=== PATIENT | female | born 1940 | race Caucasian/White ===

== ENCOUNTER 2024-03-29 05:08 | Inpatient (IN) ==
--- NOTE | 2024-02-21 10:46 | PAT Medication Instructions ---
Medication Instructions Date of Service February 21, 2024 Home Medications Vitamin D3 1 dose PO QAM calcium and magnesium carbonates oral suspension 10 ml PO QAM coenzyme Q10 100 mg capsule (CoQ-10) 100 mg PO QAM cyanocobalamin (vitamin B-12) 1,000 mcg tablet (Vitamin B-12) 1,000 mcg PO DAILY magnesium citrate 100 mg tablet 100 mg PO QAM niacin 400 mg (inositol niacinate 500 mg) capsule (Niacin Flush Free) 1 cap PO QAM resveratrol 100 mg capsule 100 mg PO QAM STOP taking 2 weeks before surgery (or as soon as possible if surgery is within 2 weeks) coenzyme Q10 100 mg capsule (CoQ-10) 100 mg PO QAM resveratrol 100 mg capsule 100 mg PO QAM STOP taking 48 hours before surgery niacin 400 mg (inositol niacinate 500 mg) capsule (Niacin Flush Free) 1 cap PO QAM DO NOT take the morning of surgery Vitamin D3 1 dose PO QAM calcium and magnesium carbonates oral suspension 10 ml PO QAM cyanocobalamin (vitamin B-12) 1,000 mcg tablet (Vitamin B-12) 1,000 mcg PO DAILY magnesium citrate 100 mg tablet 100 mg PO QAM MORNING OF SURGERY: NOTHING TO EAT OR DRINK AFTER MIDNIGHT Other Notes If you have any questions please call us at [phone] or [phone] or [phone] or [phone]
--- NOTE | 2024-02-28 13:06 | Anesthesiology Consultation ---
Date of Service February 28, 2024 Assessment & Plan (1) Encounter for pre-operative examination: awaiting: - surgeon ordered medical clearance. - cardiology clearance. Optimization form to be faxed to cardiology office. Patient and daughter made aware at PAT visit. Surgeon's office made aware. - copy of 2020 cardiac catheterization from [facility]. - copy of last AAA imaging from PCP, Dr. Noe Morales. - [employer] pacemaker. patient does not want any IV in either hand This is already marked on OR sheet. - cardiology office visit 11/22/23: "...repeat BP 132/62 (initial 200/110)...OSMAN with no limitation...dyspnea-exertional, non limiting...LV outflow tract obstruction-with borderline LVH, with OSMAN, declining BB. CAD-moderate CAD continue aspirin. AAA-monitored by PCP. Return in about 1 year..." Case discussed in detail with Dr. Nath who advised patient will need cardiology clearance prior to surgery. Total time in direct patient care 40 minutes, patient and daughter indicated all questions and concerns were addressed satisfactorily and they denied additional questions or concerns. Chart Review Chart Review: Pending: Refer to Additional Notes / Consult section and Patient seen in Pre Admission Testing Teaching & Discussion Pre-Anesthesia Teaching/Discussion Notes: Instructed NPO after midnight before surgery, except medications with 15 cc of water. Medication instructions provided according to the PAT guidelines. History Surgery Operation Date: 03/29/24 07:00 Proposed Procedures p Right Total Hip Arthroplasty with Dual Mobility Implant - Tru Beck MD Height/Weight Height: 5 ft 3 in Weight: 65.9 kg Allergies Allergy/AdvReac Type Severity Reaction Status Date / Time No Known Allergies Allergy Verified 02/14/24 14:05 Medications Home Medications Medication Instructions Recorded Confirmed Last Taken Vitamin D3 1 dose PO QAM 02/14/24 02/14/24 Unknown calcium and magnesium carbonates 10 ml PO QAM 02/14/24 02/14/24 Unknown oral suspension coenzyme Q10 100 mg capsule 100 mg PO QAM 02/14/24 02/14/24 Unknown (CoQ-10) magnesium citrate 100 mg tablet 100 mg PO QAM 02/14/24 02/14/24 Unknown niacin 400 mg (inositol niacinate 1 cap PO QAM 02/14/24 02/14/24 Unknown 500 mg) capsule (Niacin Flush Free) resveratrol 100 mg capsule 100 mg PO QAM 02/14/24 02/14/24 Unknown mecobalamin (vitamin B12) 1,000 1,000 mcg sublingual QAM 02/28/24 02/28/24 Unknown mcg disintegrating tablet,sublingual vitamin K2 45 mcg capsule 45 mcg PO DAILY 02/28/24 02/28/24 Unknown Past Medical History Medical History History of blood transfusion AAA (abdominal aortic aneurysm) Left ventricular outflow tract obstruction Hearing deficit hearing aids bilateral Borderline hypertension no medications - monitors at home routinely Hyperlipidemia Hx pulmonary embolism (12/1976) s/p delivery, treated with anticoagulants (coumadin) - no problems since. Pacemaker (08/2022) [employer] device. placed at [facility], follows with Dr Bowman. 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 last checked within the last 6 months. Patient denies h/o stroke, seizures, heart attack, heart failure, DM, or blood transfusions. Exercise / Class Metabolic Activity III < 4 Walking/Shop/Light housework (denies chest discomfort or shortness of breath with usual activities) Past Family History Family History Other No family history of adverse response to anesthesia Past Surgical History Surgical History (Updated 02/28/24 @ 15:46 by Tamara Morales PA-C) History of surgery patient states ovaries may have been surgically removed-unsure History of cataract surgery History of hernia repair History of esophagogastroduodenoscopy (EGD) History of colonoscopy History of laparoscopy remote history History of evacuation of hematoma (12/1976) from episotomy S/P cardiac pacemaker procedure 08/2022 at [facility] - [employer] device Past Anesthesia History No Hx of Anesthesia Complications and No Family Hx of Anesthesia Complications History of PONV No Hx of PONV and Hx of Motion Sickness Social History Smoking Status: Never smoker Do You Dip or Chew Tobacco: No Hx Alcohol Use: Yes alcohol intake frequency: holidays/special occasions only Hx Substance Use: No substance use type: does not use Review of Systems Patient denies chest pain, shortness of breath, dyspnea on exertion, snoring, witnessed apneas, reflux, fever, chills, cough, wheezing, or palpitations. Physical Exam Vital Signs Vitals BP 168/86 left arm manual P 75 TEMP 97.9 SP02 96% on RA RESP 19 Physical Patient resting comfortably in chair in no acute distress, alert and oriented, responding appropriately throughout visit Full cervical extension range of motion without pain TMD 3.5 finger breadths Mallampati Score 2 Dentition: intact, denies chipped or loose teeth, caps/crowns, implants or bridges Lungs: normal respiratory effort. Good air movement, clear throughout to auscultation, no adventitious breath sounds Cardiac: regular rate and rhythm, no murmurs noted Carotid arteries: negative bruit bilat Lab Results Anesthesia Preop Results Results Anesthesia Widget: WBC 6.11 K/ul (4.8-10.8) 02/28/24 Hgb 13.8 g/dl (12.0-16.0) 02/28/24 Hct 41.8 % (37.0-47.0) 02/28/24 Plt 227 K/uL (130-400) 02/28/24 Na 140 mmol/L (136-145) 02/28/24 K 4.0 mmol/L (3.5-5.1) 02/28/24 Cl 104 mmol/L (98-107) 02/28/24 CO2 29 mmol/L (21-32) 02/28/24 BUN 12 mg/dl (6-23) 02/28/24 Creat 0.86 mg/dl (0.6-1.2) 02/28/24 Glucose Level 106 mg/dl (70-99(Fasting)) H 02/28/24 PT 10.7 Seconds (9.0-12.0) 02/28/24 PTT 29 Seconds (21-31) 02/28/24 INR 1.0 (0.9-1.1) 02/28/24 Urine Color Yellow 02/28/24 Urine Appearance Clear (Clear) 02/28/24 Urine pH 5.5 (4.5-7.5) 02/28/24 Urine Specific [place] 1.015 (1.000-1.030) 02/28/24 Urine Protein Negative (Negative) 02/28/24 Urine Glucose (UA) Negative (Negative) 02/28/24 Urine Ketones Negative (Negative) 02/28/24 Urine Blood Negative (Negative) 02/28/24 Urine Nitrite Negative (Negative) 02/28/24 Urine Bilirubin Negative (Negative) 02/28/24 Urine Urobilinogen Negative (Negative) 02/28/24 Urine Leukocyte Esterase 2+ (Negative) H 02/28/24 Urine WBC (Auto) 21-50 /hpf (0-5) H 02/28/24 Urine RBC (Auto) 0-2 /hpf (0-2) 02/28/24 Urine Hyaline Casts (Auto) 0-2 /lpf (0-2) 02/28/24 Urine Epithelial Cells (Auto) 0-2 /hpf (0-2) 02/28/24 Urine Bacteria (Auto) 4+ (None Seen) H 02/28/24 Blood Type A Positive 02/28/24 Antibody Screen NEGATIVE 02/28/24 Testing Laboratory Results Surgeon's office made aware of abnormal UA. Electrocardiogram Date: 02/28/24 Atrial sensed ventricular paced rhythm, rate 72 bpm Chest X-Ray Date: 02/28/24 No acute cardiopulmonary findings. Echocardiogram Date: 11/22/23 EF 55-60% Moderate to severe mitral regurgitation Mild tricuspid regurgitation Peak LVOT velocity is 2.6 m/sec, gradient is 27 mmHg. During Valsalva, velocity was 2.8 m/sec with peak gradient of 31 mmHg PASP 28 mmHg Stress Test Date: 12/16/21 MPHR 75% Low risk study, no significant ischemia or infarction LVEF 70% Other Testing Pacemaker report 12/01/23 [employer] 4% paced atrial 96% paced ventricular Mode DDDR Carotid doppler 06/05/22 < 50% stenosis ICAs bilat
--- NOTE | 2024-03-29 05:27 | History & Physical Bridge Note ---
Date of Service March 29, 2024 History & Physical Bridge Note I have examined the patient, reviewed the History & Physical and in the interval since the performance of the History & Physical I have noted the following changes of clinical significance: consent and site verified.no changes noted
--- OUTSIDE RECORDS SUMMARY | 2024-03-29 05:29 | External Medical Summary | Continuity of Care Document ---
Author Name Unknown Organization [facility] [address] [id number] Address [address] [place] [address] [id number] Encounter [facility] [id number] Date(s): 03/02/24 - 03/02/24 [facility] [address] [facility] [address] [address] Encounter Diagnosis Osteoarthritis of right hip(Discharge Diagnosis) - 03/02/24 UTI (urinary tract infection), bacterial(Discharge Diagnosis) - 03/02/24 Discharge Disposition: Home or Self Care Attending Physician: MD Ebony, Tru Elliott Allergies, Adverse Reactions, Alerts No Known Allergies Medications Bactrim DS 800 mg-160 mg oral tablet Start: 03/01/24 5:37:00 PM EST, trimethoprim 1 tab, PO, bid, Disp# 10 tab, Stop: 03/06/24 6:00:00 PM EST, Pharmacy: [id number] Start Date: 03/01/24 Stop Date: 03/06/24 Status: Ordered Mental Status 03/02/24 Barriers to Learning one year Hearing de ficit Mandatory Health Literacy Documentation Yes Health Literacy Communication Barriers N ever Primary Language Nepali Problem List Condition Confirmation Course Effective Dates Status Health St atus Informant Bilateral hip pain Confirmed Active Diagnosis Diagnosis Type Effective Dates Health Status Clinical Service Informant UTI (urinary tract infection), bacterial Discharge Diagnosis 03/02/24 Non-Specified Osteoarthritis of right hip Discharge Diagnosis 03/02/24 Non-Specified Vital Signs Most recent to oldest [Reference Range]: 1 Height 158.5 cm (03/02/24 4:03 PM) Patient Weight 68.0 kg (03/02/24 4:03 PM) Body Mass Index 27.07 kg/m2 (03/02/24 4:03 PM) Temperature [36.5-37.9 DegC] 36.5 DegC (03/02/24 4:03 PM) Respiratory Rate 20 br/min (03/02/24 4:03 PM) Blood Pressure 110/70mmHg (03/02/24 4:03 PM) Social History Social History Type Response Smoking Status Never smoked cigaret yasmeen Sex Sex Representation Female (finding)
[2024-03-29] MEDS: LR 60ML/HR IV SCH (05:51)
[2024-03-29] MEDS: LR 500ML BOLUS, THEN 15ML/HR IV SCH (05:51)
[2024-03-29] MEDS ORDERED: BUPIVACAINE 0.5 % 5 MG/1 ML PF 10ML VIAL ONE (06:25)
[2024-03-29] MEDS: TRANEXAMIC ACID 1,000 MG **IV Pre-op IV SCH (06:43)
[2024-03-29] MEDS ORDERED: fentaNYL citrate PF 100 MCG/2 ML VIAL ONE (06:44)
[2024-03-29] MEDS: ceFAZolin 2000MG 2,000 MG/15 ML SYR IV SCH ×2 (06:58→13:50)
[2024-03-29] MEDS ORDERED: PHENYLEPHRINE HCL 10 MG/ML VIAL ONE (07:13)
[2024-03-29] MEDS ORDERED: ATROPINE SULFATE 0.1 MG/ML 10ML SYR IV PRN (07:14)
[2024-03-29] MEDS ORDERED: ONDANSETRON INJ 2 MG/ML 2 ML VIAL IV PRN (07:14)
[2024-03-29] MEDS ORDERED: ePHEDrine sulfate 50 MG/ML AMP IV PRN (07:14)
[2024-03-29] MEDS ORDERED: fentaNYL citrate PF 100 MCG/2 ML VIAL IV PRN (07:14)
[2024-03-29] MEDS ORDERED: NALOXONE HCL 0.4 MG/1 ML VIAL/CARP IV PRN ×2 (07:14→09:37)
[2024-03-29] MEDS ORDERED: PROMETHAZINE HCL 6.25 MG in SODIUM CHLORIDE 0.9% 50 ML IV PRN (07:14)
[2024-03-29] MEDS: ROPIV 0.5% 246mg, Ketorolac 30mg, EPINEPHrine 0.5mg in NSS INFIL SCH (07:31)
[2024-03-29] MEDS: ORTHO JOINT ANESTHETIC ONE (07:31)
[2024-03-29] MEDS: TRANEXAMIC ACID 1,000 MG **IV Intra-op IV SCH (07:54)
--- NOTE | 2024-03-29 08:06 | Post Operative Brief Note ---
Immediate Post Op Note Date of Surgery March 29, 2024 Pre & Post Diagnosis Operation Date: 03/29/24 07:00 <No data on this case meets the specified criteria> Osteoarthritis right hip pre and postop diagnosis same I identified the patient and participated in the time-out.: Yes Procedure Operation Date: 03/29/24 07:00 <No data on this case meets the specified criteria> Noncemented right total replacement with dual mobility implant Surgeon Tru Beck MD Collar Baster Aissatou/Olga Estimated Blood Loss 75 Findings Consistent with Post-Op Diagnosis Severe osteoarthritis inverted labrum significant tearing Fluids See anesthesia report Complications None
--- NOTE | 2024-03-29 08:10 | Operative Report ---
Post Operative Report Pre & Post Diagnosis Operation Date: 03/29/24 07:00 <No data on this case meets the specified criteria> Osteoarthritis right hip pre and postop diagnosis same I identified the patient and participated in the time-out.: Yes Procedure Operation Date: 03/29/24 07:00 <No data on this case meets the specified criteria> Noncemented right total replacement with dual mobility implant Surgeon Tru Beck MD Photo Stylist Aissatou/Olga Estimated Blood Loss 75 Findings Consistent with Post-Op Diagnosis Severe osteoarthritis with marked inverted labrum with tearing Fluids 1200 cc Specimens Bone pathology Drains None Complications None Indications Severe pain end-stage x-rays Description of Procedure After the patient was appropriate notified site verified consent verified antibiotics confirmed has been given she was carefully placed in the left lateral decubitus position after markers placed on both ankles and the left knee. This allowed the leg lengths to be measured carefully. She was then prepped and draped in usual routine fashion. Posterior approach the hip then made. Sharp dissection carried through skin blunt dissection down to the fascia this was then incised under direct vision gluteus susan flap fascia incised proximally. Retractor placed care taken to protect the sciatic nerve which was palpated but not explored. Short external rotators were identified and released the capsule was then incised and teed and then the hip dislocated the femoral neck resected. Excellent exposure was obtained of the acetabulum. Serial reaming carried up to a 50 and a 50 cup impacted in position and secured with a 6.5 x 25 screw. Excellent fixation was obtained. Some osteophytes were removed around the margin and then the dual mobility liner impacted into position. The leg was then flexed internally rotated and the proximal femur. With the decal cutter canal finder lateralizing rasp and serial broaching up to a size 3. Standard offset neck was excellent. Hip stability was excellent. This is with a 22+4 head. The hip was then dislocated all trial remaining elements removed. The wound irrigated with Pulsavac Betadine and then the permanent stem and head combo seated the hip was then reduced it was stable in all planes leg lengths were excellent. The hip capsule was then repaired with a heavy 2 Vicryl short external rotators same deep fascia with #2 Vicryl as well. Subcutaneous layer with 2-0 Vicryl. Injectables into the hip for pain management Ortho mix. Skin then approximated with lesa. Wound was then dressed appropriately patient transferred recovery in satisfactory addition having tolerated the procedure well. Summary of implants acetabular shell sector [place] size 5025 x 6.5 screw dome cover whole millimeter of the mobility liner 50/43 3 standard stem 43/22 bipolar and a 22+4 head. EBL was 75 cc or less crystalloid per anesthesia bone pathology pending. DVT prophylaxis to begin tomorrow I attest to the content of the Intraoperative Record and any orders documented therein. Any exceptions are noted below.
--- NOTE | 2024-03-29 08:11 | Orthopedic Progress Note ---
Date of Service March 29, 2024 Orthopedic Progress Note Underwent right total replacement. Tolerated well. Denies chest pain shortness of breath fever chills nausea vomiting headache. Vital signs are stable she is afebrile. Neurovascular check limited by spinal. X-ray pending. Family contacted. Begin DVT prophylaxis tomorrow.
--- NOTE | 2024-03-29 08:11 | Discharge Summary ---
Date of Service March 29, 2024 Admission HPI Per Admitting Provider Severe pain right hip Principal Diagnosis Osteoarthritis right hip Discharge Data Allergies Allergy/AdvReac Type Severity Reaction Status Date / Time No Known Allergies Allergy Verified 03/29/24 05:33 Vaccinations None Consultations Hospitalist Procedures Performed Operation Date: 03/29/24 07:00 <No data on this case meets the specified criteria> Noncemented right total replacement with dual mobility implants Ordered Studies X-rays and labsIV fluid Hospital Course (1) Status post right hip replacement: (2) Acute blood loss anemia: (3) Acute kidney injury: Acute kidney injury IV fluid administrated kidney injury responded to hydration delusional effect on hematocrit. Plan Continue care pathway and potential assessment for [facility] Total Time Total Time Spent Total Time Spent (In Minutes): 15 Discharge Plan Discharge Items Patient Disposition: Transfer Inpatient Rehab Fac Reason For Visit: Right Hip Osteoarthritis Discharge Diagnosis: Right hip status post hip replacement with dual mobility head Condition on Discharge: Good Activity: Per Instructions section Activity Comment: postural precautions for R AMBROSIO Lifting: No more than 5 pounds Bathing: Keep incision dry Sexual Activity: Wait until after follow-up appointment Exercise/Sports: Wait until after follow-up appointment Driving/Machine Use: no driving until cleared by Dr. Beck Weightbearing: Full weightbearing Non-emergency contact: Surgeon Call non-emergency contact if: you have any medication questions, your pain is not controlled, your temperature is above 101, your wound has increased redness, your wound has increased drainage and your wound pain has increased Follow-up/Referrals: Nelson Espinoza PA-C [Physician Landscape And Yardwork Laborer] - 04/13/24 PCP,NO [Primary Care Provider] - Diet: Regular Addtl Attending Provider Instructions: New Medicine: * You will likely be taking one or more of these medicines: 1. Percocet - Take, as directed, when you need it, every four to six hours to control your pain. 2. Iron Sulfate - Take 1x each day for the month after surgery to help you replace the blood lost during surgery. 3. Eliquis - Thins your blood to lessen the chance of forming a blood clot. It is taken 2x per day * The most common side effects of pain medicine and iron are nausea and constipation. If nausea or constipation is too much of a problem or if you have any questions about your new medicines or doses, call [facility] at . We will try to help you manage these issues. "VERY IMPORTANT TO READ AND REVIEW" Blood Clots and Blood Thinning Medicine: * You are given Eliquis during the immediate post-operative period to lessen the risk of blood clots forming in your legs and/or lungs. It is usually given for 4 weeks after surgery. Pain: * The immediate post-operative period after hip replacement surgery is often quite painful. * You are given a prescription for pain medicine. You should take it, as directed, when you need it, especially before physical therapy and before going to bed. Pain that interferes with sleep is very common and can last several months. * You will likely need pain medicine for the first two to four weeks. It will not stop all of the pain. The pain will lessen and as you feel better, you may change to milder pain medicine such as Tylenol. * The most common side effects of pain medicine are nausea and constipation, so don't take more than you need. Physical Therapy: * Follow the "Hip Precautions Instructions." * In some cases, the social security specialist at the hospital will arrange to have a therapist come to your house for the first couple of weeks to help you learn these skills. * You need to practice on your own or with the help of a family member as needed. * When you learn these skills, most of the therapy can be done on your own. Home Exercise: * You were shown a series of exercises in the hospital. Do these exercises three to four times each day including the exercises you were shown in physical therapy. Walking: * Get up and walk several times each day. For the first four weeks, try not to stand or walk for more than one hour at a time. If you do stand or walk for mo re than one hour, you will not hurt anything, but your leg will likely swell. * As you feel comfortable, you may change from the walker or crutches to a cane and then to independent walking. SELF CARE INSTRUCTIONS AFTER TOTAL HIP REPLACEMENT Until the incision and soft tissues around your hip have healed, there is a possibility that the hip prosthesis could dislocate. A. Observe the following precautions to prevent dislocation: 1. Don't bend your hip greater than 90 degrees. 2. Avoid crossing your legs or ankles while standing or lying. 3. Sit with your feet placed 6 inches apart. 4. When sitting, keep your knees below your hips. Sit on a firm surface, avoid deep, soft chairs and couches. Use an elevated toilet seat in the bathroom. 5. Don't bend over at the waist. Use a long handled shoehorn and a sock aid to help you put on your shoes and socks. A baler can help you potato picker objects that are too high or too low to reach. 6. Keep car riding to a minimum for at least one month after surgery. B. Your balance may be shaky for a while. Use crutches or a walker until directed by your doctor. C. Use hand rails when walking on stairs. D. Wear low heeled shoes with non-slip soles. E. Be sure that your floors are free of things that could trip you - throw rugs, electrical cords, small objects. Avoid wet and waxed floors, especially with crutches and canes. F. Try to walk several times a day with rest periods between. G. Continue with all the exercises taught to you in the hospital. Again, make walking a part of your daily routine. VERY IMPORTANT TO READ AND REVIEW A. Take Eliquis (blood thinning medication) as directed by your doctor. B. There are a few signs you need to watch for after you are home. If you notice any of the followin. Increased severe hip pain. Some pain is expected especially when you exercise. 2. Increased swelling in your leg or knee; pain or swelling of the calf muscle in either lower leg. 3. Any fluid drainage from the incision. 4. Shortness of breath or chest pain. TEDs/Elastic Stockings: * The white elastic stockings help limit swelling and prevent blood clots from forming in your legs. The more you wear them, the more they work. * Wear them for six weeks. Prevention of Infection: * Take antibiotics one hour before any dental cleaning, dental work, urological procedure, gastrointestinal procedure or any invasive surgery in order to prevent your new joint from getting infected. * You may get the antibiotics from the doctor performing the procedure or we will call in a prescription to the pharmacy of your choice. Call the office for a prescription at least 2 days prior to your appointment. Diet: * You may return to previous diet. Things to Watch For: * Drainage from the incision site that occurs more than one week after your surgery. * Severely increased leg pain or swelling. * Increased redness at the incision site. * Fever above 101 degrees Fahrenheit. * Unusual chest pain or shortness of breath. * Unusual pain or burning with urination. Follow up in the office on April 13 as scheduled Addtl Well Service Derrick Worker Provider Instructions: As your blood pressure was low in the hospital and may take some time to return to normal, we advise you be careful when moving around. Get up slowly and stand for a minute or so before you start to walk around to ensure you feel okay prior to walking. If you stand and feel unwell, please sit down immediately. In the mornings, sit up on the edge of the bed for several minutes prior to standing. Be sure to drink plenty of fluids, 60-80 ounces of noncaffeinated fluids, throughout the day. You should have some fluids with electrolytes as well, as electrolytes/salt will help you retain the fluids in your circulation for longer and raise your blood pressure. Please plan to follow-up with your primary care doctor within 1 week of discharge from the hospital. Pending Studies at Discharge: Yes (bone pathology) Studies:: bone pathology Stand-Alone Forms: [facility] Skilled Items Patient informed of condition?: Yes DNR: No Discharge Level of Care: Acute rehab Communicable Disease: No Discharge Prognosis: Improving Lines: None and Peripheral IV Urinary Catheter: No Medications and DC Order Prescriptions: New Eliquis 2.5 mg tablet 2.5 mg PO BID Qty: 60 0RF oxycodone-acetaminophen [Percocet] 5-325 mg tablet 2 tab PO Q6H PRN (Reason: pain) Qty: 20 0RF Rx Instructions: initial script nitrofurantoin monohyd/m-cryst [Macrobid] 100 mg capsule 100 mg PO BID 5 Days Qty: 10 0RF Rx Instructions: must administer with a meal/food Continued niacin (inositol niacinate) [Niacin Flush Free] 400 mg niacin (500 mg) Capsule 1 cap PO QAM calcium and magnesium carbonat Suspension 10 ml PO QAM resveratrol 100 mg Capsule 100 mg PO QAM magnesium citrate 100 mg Tablet 100 mg PO QAM Vitamin D3 1 dose PO QAM mecobalamin (vitamin B12) 1,000 mcg Tablet,Disintegrating 1,000 mcg SUBLINGUAL QAM Rx Instructions: place tablet under tongue and allow to dissolve for at least30 secs before swallowing vitamin K2 45 mcg Capsule 45 mcg PO DAILY Held coenzyme Q10 [CoQ-10] 100 mg Capsule 100 mg PO QAM Hold Instructions: Resume on 04/30/24. Discharge Orders: Discharge Order (Routine); Ordered 03/30/24 Ordered By: Tru Beck Admission Data Admit Date/Time: 03/29/24 08:31 Attending Provider: Tru Beck Admit Provider: Tru Beck Primary Care Provider: PCP,NO Other Providers: [facility]; Merissa Moore
--- NOTE | 2024-03-29 08:22 | Operative Report ---
Post Operative Report Pre & Post Diagnosis Operation Date: 03/29/24 07:00 Pre-Op Diagnosis: Right Hip Osteoarthritis Post-Op Diagnosis: Right Hip Osteoarthritis I identified the patient and participated in the time-out.: Yes Procedure Operation Date: 03/29/24 07:00 Actual Procedures p Right Total Hip Arthroplasty with Dual Mobility Implant(Right) - Tru croft MD Surgeon Tru Beck MD Extractor Loader And Unloader Aissatou/Olga Estimated Blood Loss 75 Findings Consistent with Post-Op Diagnosis Specimens Right femoral head Description of Procedure Patient was brought to the operative suite where she underwent anesthesia. She was placed in left lateral decubitus position. The right lower extremity was prepped and draped in the usual sterile fashion. A surgical timeout was performed. Patient underwent a right total hip arthroplasty; please see Dr. Beck's operative report for full details. I was present and assisted with patient positioning, limb positioning, soft tissue retraction, hemostasis, hardware implantation, wound closure, postoperative dressing placement. The patient was awakened and taken to the recovery room in stable condition. I attest to the content of the Intraoperative Record and any orders documented therein. Any exceptions are noted below.
--- NOTE | 2024-03-29 08:25 | Operative Report ---
Post Operative Report Pre & Post Diagnosis Operation Date: 03/29/24 07:00 Pre-Op Diagnosis: Right Hip Osteoarthritis Post-Op Diagnosis: Right Hip Osteoarthritis I identified the patient and participated in the time-out.: Yes Procedure Operation Date: 03/29/24 07:00 Actual Procedures p Right Total Hip Arthroplasty with Dual Mobility Implant(Right) - Tru croft MD Surgeon JANET Beck MD Sourcing Associate Aissatou/Olga SCHMITZ Estimated Blood Loss 75 Findings Consistent with Post-Op Diagnosis see operative report Specimens see operative report Drains none Complications none Disposition Accompanied Patient To Recovery: Yes Indications This 84 year old female presented to the office with complaints of persisting right hip pain. She had tried conservative care measures without improvement. She elected to proceed with surgical invention after being educated about potential risks and outcomes. Preoperative imaging was obtained. Description of Procedure The patient was given a spinal anesthetic and then taken to the operating room where she was given sedation. She was prepped and draped in the usual sterile fashion. Please see Dr. Beck's operative report for specifics of the procedure. I was present for the entire case from initial patient positioning through final wound closure. Assistance was provided in tissue retraction, hemostasis, trial implant placement, final implant placement, and final wound closure. The patient was taken to the recovery room in satisfactory condition. I attest to the content of the Intraoperative Record and any orders documented therein. Any exceptions are noted below.
--- NOTE | 2024-03-29 08:40 | XRay Report ---
XR pelvis 1-2V routine CLINICAL HISTORY: S/P R AMBROSIO COMPARISON: None pertinent FINDINGS: Single view portable of the low pelvis demonstrates a right total hip replacement with sat isfactory positioning and alignment of the prosthetic components on this single view. Postsurgical ch anges are noted surrounding the right hip. There is moderate osteoarthritis of the left hip. IMPRESSION: As above ACT 112: Negative or not required by law. Electronically signed by: Martita Weiss M.D. 03/29/2024 8:39 AM
[2024-03-29] MEDS ORDERED: diphenhydrAMINE 50 MG/ML VIAL IV PRN (09:37)
[2024-03-29] MEDS ORDERED: ALUMINUM/MAGNESIUM SUSP 30 ML UDC PO PRN (09:37)
[2024-03-29] MEDS ORDERED: RESVERATROL 100 MG PO SCH (09:37)
[2024-03-29] MEDS ORDERED: MAGNESIUM HYDROXIDE SUSP 30 ML UDC PO PRN (09:37)
[2024-03-29] MEDS ORDERED: METOCLOPRAMIDE HCL INJ 5 MG/ML 2 ML VIAL IV PRN (09:37)
[2024-03-29] MEDS ORDERED: bisacodyL 10 MG SUPP PR PRN (09:37)
[2024-03-29] MEDS ORDERED: HYDROmorphone INJ 0.5 MG/0.5 ML SYR IV PRN ×2 (09:37→17:21)
--- NOTE | 2024-03-29 09:42 | Anesthesiology Progress Note ---
Date of Service March 29, 2024 Anesthesia Post Procedure Vital Signs Vital Signs: Temp Pulse Pulse Resp BP Pulse Ox O2 Del Method 03/29/24 09:15 74 14 128/80 98 Room Air 03/29/24 09:05 36.4 C L 76 20 144/71 H 97 Room Air 03/29/24 08:55 77 22 132/65 99 Oxymask 03/29/24 08:45 77 24 139/70 100 Oxymask 03/29/24 08:35 76 24 114/79 98 Oxymask 03/29/24 08:26 36.3 C L 82 24 140/68 97 Oxymask 03/29/24 05:38 36.4 C L 72 16 180/92 H 97 Room Air O2 Flow Rate 03/29/24 09:15 03/29/24 09:05 03/29/24 08:55 5 03/29/24 08:45 5 03/29/24 08:35 5 03/29/24 08:26 5 03/29/24 05:38 Pain Intensity Right Hip: Pain Intensity: 6 Transfer of Care Handoff Completed per policy Notes Mental Status: alert / awake / arousable Patient Amnestic to Procedure: Yes Nausea / Vomiting: adequately controlled Pain: adequately controlled Airway Patency, RR, SpO2: stable & adequate BP & HR: stable & adequate Hydration State: stable & adequate Neuraxial Anesthesia: was administered and sensory block is resolving Anesthetic Complications: no major complications apparent
[2024-03-29] MEDS: DOCUSATE SODIUM 100 MG CAP PO SCH (10:42)
[2024-03-29] MEDS: KETOROLAC TROMETHAMINE 15 MG/ML VIAL IV SCH (10:42)
--- NOTE | 2024-03-29 11:30 | Orthopedic Progress Note ---
Date of Service March 29, 2024 Assessment & Plan Admission and Anticipated Discharge Date Admission Date: March 29, 2024 Orthopedic Progress Note Patient seen postop up in her room on the third floor. She is doing well she denies chest pain shortness of breath fever chills nausea vomiting or headache. Vital signs are stable she is afebrile. Neurovascular check femoral sciatic nerve is intact. Hip is located. Wound dressing clean dry and intact. Postop x-rays look excellent. Assessment doing well continue care pathway for total hip replacement. Initiate anticoagulation tomorrow. Dressing change tomorrow. Prepare for discharge tomorrow. Unclear whether she be going home with services or to an additional facility. Case management consulted.
[2024-03-29] MEDS: oxyCODONE HCL IR 5 MG TAB (IMMEDIATE RELEASE) PO PRN (12:47)
[2024-03-29] MEDS: ACETAMINOPHEN 500 MG TAB PO SCH (13:49)
[2024-03-29] MEDS: ASCORBIC ACID 500 MG TAB PO SCH (16:58)
[2024-03-29] MEDS: FERROUS GLUCONATE 324 MG TAB PO SCH (16:59)
[2024-03-29] MEDS: ONDANSETRON INJ 2 MG/ML 2 ML VIAL IV PRN (21:36)
[2024-03-29] MEDS: SENNA 8.6 MG TAB PO SCH (22:34)
--- NOTE | 2024-03-30 02:43 | Communication Note ---
Date of Service: March 30, 2024 Notified by RN that patient was pale, diaphoretic, and hypotensive (70/47) at rest. Patient evaluated at bedside, in Trendelenburg position + started on 1L bolus NSS. Vitals otherwise stable. BSG ~150. Patient reported feeling a bit better, lightheadedness resolved. No focal neuro deficits appreciated. Patient denied chest pain, shortness of breath, CARTER, changes in vision. BP after 1L bolus 99/61. EKG and labs obtained. Hemoglobin dropped 13.8 -> 9.4, likely a combination of acute blood loss + some dilutional component. Mag 1.4, Ca 7.9 - s/p 2g mag sulfate, 1g calcium gluconate. EKG demonstrated atrial sensed ventricular paced rhythm, largely consistent with previous EKG with the exception of prolonged QTc interval. Some degree of prolongation not unexpected with a ventricular paced rhythm, ?more prominent d/t concomitant hypomagnesemia vs other. Could consider repeat EKG at some point to reassess. Fluid responsiveness thus far only transient - BP recheck 82/49 - given small amount of albumin, additional 500cc bolus -> BP 97/53 Continue maintenance fluids, goal to keep MAP>65. Cr also bumped, ?prerenal d/t volume contraction - recommend reassessing volume status during day.
[2024-03-30 02:47] LABS: Basophils # (auto) 0.03 K/uL (0.00-0.20); Basophils % (auto) 0.4 %; Eosinophils % (auto) 1.4 %; Hematocrit (blood only) 28.4 % (37.0-47.0); Hemoglobin 9.4 g/dl (12.0-16.0); Immature Granulocytes # (auto) 0.03 K/uL (0.01-0.20); Immature Granulocytes % (auto) 0.4 %; Lymphocytes # (auto) 1.26 K/uL (1.20-3.40); Lymphocytes % (auto) 17.2 %; Mean Corpuscular Hemoglobin 30.1 pg (25.0-34.0); Mean Corpuscular Hgb Conc 33.1 g/dL (32.0-36.0); Mean Platelet Volume 10.9 fL (9.4-12.4); Monocytes # (auto) 0.78 K/uL (0.11-0.59); Monocytes % (auto) 10.6 %; Neutrophils # (auto) 5.14 K/uL (1.40-6.50); Platelet Count 140 K/uL (130-400); RDW Coefficient of Variation 13.4 % (11.5-14.5); RDW Standard Deviation 43.8 fL (36.4-46.3); Red Blood Count 3.12 M/uL (4.20-5.40); White Blood Count 7.34 K/ul (4.8-10.8)
[2024-03-30] MEDS: SODIUM CHLORIDE 0.9% 1,000 ML IV SCH (02:59)
[2024-03-30 03:04] LABS: BUN Creatinine Ratio 16.7 (10-20); Calcium 7.9 mg/dl (8.6-10.3); Creatinine Clr Calc Pharmacy 28.4 ml/min; Magnesium 1.4 mg/dl (1.7-2.4); Potassium 4.1 mmol/L (3.5-5.1)
[2024-03-30] MEDS: SODIUM CHLORIDE 0.9% 500 ML IV SCH (03:31)
[2024-03-30] MEDS: ALBUMIN 25% 25 GM/100 ML VIAL IV ONE (03:32)
[2024-03-30] MEDS: MAGNESIUM SULFATE / D5W 1 GM/100 ML BAG IV SCH (04:58)
[2024-03-30] MEDS: LACTATED RINGER'S 500 ML IV ONE (04:59)
[2024-03-30] MEDS: CALCIUM GLUCONATE 1,000 MG/60 ML BAG IV STA (05:09)
[2024-03-30] MEDS ORDERED: dexAMETHasone**PF** 10 MG/ML VIAL IV ONE (05:19)
[2024-03-30] MEDS ORDERED: oxyCODONE HCL IR 5 MG TAB (IMMEDIATE RELEASE) PO PRN (05:23)
[2024-03-30] MEDS: dexAMETHasone 10 MG in SYRINGE 0 ML IV STA (06:20)
--- NOTE | 2024-03-30 06:43 | Orthopedic Progress Note ---
Date of Service March 30, 2024 Assessment & Plan Admission and Anticipated Discharge Date Admission Date: March 29, 2024 Orthopedic Progress Note Had a post micturition syncopal episode yesterday. Received some IV fluid. She is awake alert oriented. She denies any chest pain shortness of breath fever chills nausea vomiting or headache. Workup is essentially negative. There is a UA pending based at the request of the hospitalist. She had no symptoms. Vital signs are stable blood pressure has been soft the entire time she has been here when she is relaxed. Neurovascular check femoral sciatic nerve is normal hip wound dressing clean dry and intact. Hip is located. Assessment this point in time has some anxiety which is her baseline has little bit of reactive hypotension from medications. Of adjusted dose. She received IV fluids. Gave her dexamethasone early. Will see how she responds. Case management involved to potentially have her transfer to [facility].
[2024-03-30 06:57] LABS: BUN Creatinine Ratio 17.9 (10-20); Calcium 8.2 mg/dl (8.6-10.3); Creatinine Clr Calc Pharmacy 33.4 ml/min; Potassium 3.8 mmol/L (3.5-5.1)
--- NOTE | 2024-03-30 06:58 | Hospitalist Consultation ---
Date of Consultation March 30, 2024 Assessment & Plan (1) Hypotension: (2) Near syncope: (3) Anemia: Plan Pt is an 84 yo female with a past med hx including hx of DMT2, HTN, and osteopenia who presents on 03/29 for routine R hip replacement, now postop day 1. Consulted for near syncope overnight. 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 - EKG reviewed from last night and pre-op 02/27 and appear quite similar overall - BP during episode last night was 70s/40s but was fluid responsive to 1 L IVF, mag 1.4 replaced overnight - suspect near syncope was due to post-op hypotension, improved with fluids - doing well so far today, BP low but permissible if no associated symptoms - to work with PT today #Anemia - preop Hgb 02/27 was 13.8, yesterday postop noted to be 9.4, stable at 8.5 - suspect multifactorial; blood loss + dilutional with IVF - recommend recheck CBC or H&H in 1 week with PCP f/u Supervising Physician Co-Signing Physician Notes I personally examined the patient and verified vásquez points of history and exam, discussed case, and agree with decision making and plan documented by Dr. Powers. History of Present Illness Reason for Consultation: Near syncopal episode, pacemaker Requesting Physician: Ebonie Sandoval PA-C Attending Physician: Tru Beck MD History of Present Illness Pt is an 84 yo female with a past med hx including hx of DMT2, HTN, and osteopenia who presents on 03/29 for routine R hip replacement, now postop day 1. Pt states last night she had near-syncopal episode while getting up. She states her BP then was noted to be low and that she never has a low blood pressure and definitely not as low as it was last night. Today so far feeling okay. She has gotten out of bed to the bedside commode without issue. No chest pain, SOB or headache in the sitting position now. She does note some R hip soreness but notes it feels a bit better today compared to yesterday/last night. Otherwise, n o complaints today. Allergies Allergy/AdvReac Type Severity Reaction Status Date / Time No Known Allergies Allergy Verified 03/29/24 05:33 Home Medications Medication Instructions Recorded Confirmed Type Vitamin D3 1 dose PO QAM 02/14/24 03/29/24 History calcium and magnesium carbonates 10 ml PO QAM 02/14/24 03/29/24 History oral suspension coenzyme Q10 100 mg capsule 100 mg PO QAM 02/14/24 03/29/24 History (CoQ-10) magnesium citrate 100 mg tablet 100 mg PO QAM 02/14/24 03/29/24 History niacin 400 mg (inositol niacinate 1 cap PO QAM 02/14/24 03/29/24 History 500 mg) capsule (Niacin Flush Free) resveratrol 100 mg capsule 100 mg PO QAM 02/14/24 03/29/24 History mecobalamin (vitamin B12) 1,000 1,000 mcg sublingual QAM 02/28/24 03/29/24 History mcg disintegrating tablet,sublingual vitamin K2 45 mcg capsule 45 mcg PO DAILY 02/28/24 03/29/24 History apixaban 2.5 mg tablet (Eliquis) 2.5 mg PO BID #60 tabs 03/30/24 Rx nitrofurantoin 100 mg PO BID 5 days #10 caps 03/30/24 Rx monohydrate/macrocrystals 100 mg capsule (Macrobid) oxycodone-acetaminophen 5 mg-325 2 tab PO Q6H PRN pain #20 tabs 03/30/24 Rx mg tablet (Percocet) Patient History Medical History (Updated 03/30/24 @ 10:38 by Brittany Powers DO) Diabetes History of blood transfusion AAA (abdominal aortic aneurysm) Left ventricular outflow tract obstruction Hearing deficit hearing aids bilateral Borderline hypertension no medications - monitors at home routinely Hyperlipidemia Hx pulmonary embolism (12/1976) s/p delivery, treated with anticoagulants (coumadin) - no problems since. Pacemaker (08/2022) [employer] device. placed at [facility], follows with Dr Bowman. 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 last checked within the last 6 months. Surgical History (Updated 03/29/24 @ 08:10 by Tru Beck MD) History of surgery patient states ovaries may have been surgically removed-unsure History of cataract surgery History of hernia repair History of esophagogastroduodenoscopy (EGD) History of colonoscopy History of laparoscopy remote history History of evacuation of hematoma (12/1976) from episotomy S/P cardiac pacemaker procedure 08/2022 at [facility] [employer] [place] [employer] device Family History Other No family history of adverse response to anesthesia Social History Smoking Status: Never smoker Second Hand Exposure: No; Do You Dip or Chew Tobacco: No; Hx Alcohol Use: Yes Hx Substance Use: No Preferred Language: Fijian Communication Ability: Effective Communication Ability Comment: [facility] Cloth Mercerizer Operator Required: No Beliefs That Will Affect Care: None Current Living Situation: Alone Feels Safe at Home: Yes Assistive Devices: None Review of Systems Review of Systems: As per above. Physical Exam Physical Exam: General:Alert and oriented, no acute distress, HEENT: Normocephalic, moist oral mucosa, Cardio: Regular rate and rhythm, Resp:Lungs clear to auscultation b/l, no wheezes or rhonchi, no increased resp effort or resp distress Skin: Warm, pink, dry, Results & Data Results & Data Vital Signs (Past 12 Hours) Vital Signs Temp Pulse Resp BP BP Pulse Ox O2 Del Method 03/30/24 06:22 104/62 03/30/24 05:51 88 97/53 L 94 Room Air 03/30/24 05:22 83 101/60 03/30/24 04:34 82/49 L 03/30/24 01:57 85 95/58 L 96 Room Air 03/30/24 01:51 94/55 L 03/30/24 01:51 70/47 L 03/29/24 23:27 36.6 C 87 18 106/65 92 Room Air 03/29/24 20:19 36.5 C 82 16 103/65 98 Room Air 03/29/24 19:14 120/66 03/29/24 19:13 36.5 C 73 16 103/56 L 95 Room Air Resident Activity Tracking Resident Involvement: Resident Care Provided Care Provided: Adult Hospital Medicine
[2024-03-30 07:13] VITALS: O2SAT 91
[2024-03-30 07:53] LABS: Hematocrit (blood only) 25.6 % (37.0-47.0); Hemoglobin 8.5 g/dl (12.0-16.0); Mean Corpuscular Hemoglobin 30.4 pg (25.0-34.0); Mean Corpuscular Hgb Conc 33.2 g/dL (32.0-36.0); Mean Corpuscular Volume 91.4 fL (80.0-100.0); Mean Platelet Volume 11.4 fL (9.4-12.4); Platelet Count 131 K/uL (130-400); RDW Coefficient of Variation 13.3 % (11.5-14.5); RDW Standard Deviation 44.1 fL (36.4-46.3); White Blood Count 7.05 K/ul (4.8-10.8)
[2024-03-30] MEDS ORDERED: dexAMETHasone 10 MG in SYRINGE 0 ML IV SCH (08:00)
[2024-03-30 08:06] LABS: Appearance Urine Cloudy (Clear); Bacteria Urine Automated None Seen (None Seen); Bilirubin Urine Negative (Negative); Blood Urine Negative (Negative); Cast Urine Automated 0-2 /lpf (0-2); Color Urine Yellow; Epithelial Cell Urine Auto 0-2 /hpf (0-2); Glucose Urine UA Negative (Negative); Ketones Urine Trace (Negative); Leukocyte Esterase Urine 3+ (Negative); Nitrite Urine Negative (Negative); Protein Urine Negative (Negative); Specific Gravity Urine 1.013 (1.000-1.030); Urobilinogen Urine Negative (Negative); WBC Urine Automated >50 /hpf (0-5); pH Urine 5.5 (4.5-7.5)
[2024-03-30] MEDS: NIACIN 500 MG TAB PO SCH (08:29)
[2024-03-30] MEDS: MULTIVITAMIN TAB PO SCH (08:30)
[2024-03-30] MEDS: APIXABAN 2.5 MG TAB PO SCH (08:30)
[2024-03-30] MEDS: MAGNESIUM OXIDE 400 MG TAB PO SCH (08:30)
--- NOTE | 2024-03-30 09:23 | Orthopedic Progress Note ---
Date of Service March 30, 2024 Assessment & Plan (1) Status post right hip replacement: Plan: The patient was seen in her room this morning her dressing was changed by me. A new pressure dressing of gauze, ABDs, and Medipore tape was applied. The patient was observed ambulating in the hallway with therapy. She actually did very well and walked over 120 feet. She continued to have some nausea but did not have any vomiting. Application has been made for [facility]. I think she is ready for discharge at this time, as she is doing quite well. She has had no further episodes of the near syncope like she did yesterday. She will be discharged on Macrobid for her urine, as this may represent an early UTI. She did have a UTI preoperatively that was treated successfully. Follow-up in the office on April 13 as scheduled. Prescriptions for Macrobid, Percocet, and Eliquis 2.5 mg twice daily have been sent. Total precautions were reviewed. Importance of using her walker when ambulatory, and using her wedge pillow when sleeping, was discussed. Written discharge instructions were provided. Admission and Anticipated Discharge Date Admission Date: March 29, 2024 Subjective This 84-year-old female is seen this morning in her room. She is 1 day status post right total hip arthroplasty. She states she had an episode yesterday where she became lightheaded and nauseated while attempting to get ambulate to the bathroom. She was taken back to bed and was found to have hypotension. The hospitalist service was consulted. UA obtained yesterday is abnormal but does not have any bacteria. Vitals this morning show continued hypotension with a BP of 102/55. Pulse is 93. O2 sat is 91% on room air. She denies any chest pain or shortness of breath. She is a bit nauseated. She is quite anxious this morning about getting out of bed and states she has been using the bedpan for fear of having another episode of lightheadedness. No additional complaints. She has had some hip pain but it is controlled with oral pain medication. Review of Systems Review of Systems: Unchanged from yesterday. Physical Exam Physical Exam: General: Well-developed, well-nourished, elderly female, in no acute distress. Laying in bed. Alert and oriented. Conversive. Skin: Warm and dry with good turgor. No rashes. Postsurgical dressing is in place on the right hip. Upon removal, there is a mild amount of bloody drainage on the inner gauze. There is no active bleeding at this time. [place] are in place. Wound edges are well-approximated. No erythema or warmth. No ecchymosis. No edema. Musculoskeletal: The patient has intact motor function to the right leg. She is able to actively plantarflex and dorsiflex the ankle, flex and extend the knee, and perform a heel slide to flex the hip. No pain with passive logrolling of the hip. Neurologic: Gross sensation is intact across the lower extremities by soft touch . Peripheral pulses are 2+. Results & Data Vital Signs (Past 12 Hours) Vital Signs Temp Pulse Resp BP BP Pulse Ox O2 Del Method 03/30/24 07:12 37.6 C H 93 H 17 102/55 L 91 Room Air 03/30/24 06:22 104/62 03/30/24 05:51 88 97/53 L 94 Room Air 03/30/24 05:22 83 101/60 03/30/24 04:34 82/49 L 03/30/24 01:57 85 95/58 L 96 Room Air 03/30/24 01:51 94/55 L 03/30/24 01:51 70/47 L 03/29/24 23:27 36.6 C 87 18 106/65 92 Room Air Laboratory Results CBC obtained this morning shows a white count of 7.05. H&H of 8.5 and 25.6. Platelets 131,000. PRP obtained this morning shows a sodium of 138, potassium 3.8, chloride 108, BUN of 20 with creatinine 1.12. Glucose 140. Calcium 8.2 and magnesium 1.4. Urine this morning shows cloudy yellow urine with trace ketones and 3+ leukocytes. RBCs and WBCs are present in her urine, without bacteria. No epithelials.
[2024-03-30 14:18] VITALS: BP 96/59; PULSE 86; RESP 16; TEMP 97.3
--- NOTE | 2024-03-30 16:01 | Electrocardiogram Report ---
Test Reason : Blood Pressure : */* mmHG Vent. Rate : 88 BPM Atrial Rate : 88 BPM P-R Int : 122 ms QRS Dur : 142 ms QT Int : 436 ms P-R-T Axes : 34 9 209 degrees QTcB Int : 527 ms Atrial-sensed ventricular-paced rhythm Abnormal ECG When compared with ECG of 28-Feb-2024 14:04, Vent. rate has increased by 16 bpm Confirmed by Sandro Wolff ([id number]) on 03/30/2024 4:01:17 PM Referred By: Tru Beck Confirmed By: Sandro Wolff
--- NOTE | 2024-04-11 06:39 | Coding Query ---
ANEMIA To promote full compliance with coding requirements relating to patient care, physician participation is requested in all cases of awning frame maker uncertainty. Please assist us with the question(s) below: Coding Question(s): The record reflects the following clinical findings: If these findings are indicative of anemia, please specify the known or suspected type by placing an "X" within the parenthesis (x). If other, please document type. Examples are: ( ) Acute blood loss anemia ( x) Acute Postoperative blood loss anemia ( ) Acute postoperative anemia due to dilutional fluids ( ) Chronic blood loss anemia ( ) Anemia of chronic disease ( ) Aplastic anemia ( ) Anemia due to renal disease ( ) Anemia in neoplastic disease ( ) Iron deficient anemia ( ) Anemia, unspecified or other ( ) Other: (please specify) Thank you Alesha DUARTE
== END 2024-03-30 17:15 | DRG 470 ==
LOC: ASU 05:08 → INTOOBSV 08:31 → 3E 08:31 → OBSVTOIN 08:31